=== PATIENT | male | born 1990 | race Two or more races ===

== ENCOUNTER 2017-03-28 06:37 | Emergency (ER) | payer OTHER ==
[~2017-03-28] VITALS: Ht 167.6 cm; Wt 54.4 kg
[2017-03-28] MEDS ORDERED: STRIBILD TABLE1 EACH PO (06:54)
[2017-03-28] MEDS ORDERED: LORazepam 1mg tab ORAL ONE (07:15)
[2017-03-28 08:16] VITALS: BP 120/86
[2017-03-28 08:19] VITALS: BP 120/86
[2017-03-28] MEDS ORDERED: ALPRAZOLAM0.25 MG ORAL (08:41)
--- NOTE | 2017-03-31 07:04 | Emergency Room Report ---
History of Present Illness General Chief Complaint: Substance Abuse Source: Patient Present Illness HPI 27-year-old male presents ED for evaluation. Patient states that he needs to be evaluated. Patient states he feels tired and is not sleeping. 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 Denies any other drug use. Denies any chest pain or shortness of breath. States he is homeless has been walking around all night. Patient states he feels very anxious and needs something to relax. Denies any suicidal or homicidal ideation. Denies hearing voices. No other aggravating or relieving factors. Denies any other associated symptoms Allergies: Coded Allergies: No Known Allergies (Unverified , 03/28/17) Patient History Past Medical History: none, psych hx Past Surgical History: none Pertinent Family History: none Social History: Reports: drug use, Denies: alcohol use, smoking Immunizations: UTD Reviewed Nursing Documentation: PMH: Agreed, PSxH: Agreed Nursing Documentation-PMH History Of Psychiatric Problem: Yes - Anxiety Review of Systems All Other Systems: negative except mentioned in HPI Physical Exam Vital Signs Date Time Temp Pulse Resp B/P Pulse Ox O2 Delivery O2 Flow Rate FiO2 03/28/17 06:50 98.2 93 18 136/63 100 Room Air Sp02 EP Interpretation: reviewed, normal General Appearance: no apparent distress, alert, GCS 15, non-toxic Head: normocephalic, atraumatic Eyes: bilateral eye PERRL, bilateral eye normal inspection ENT: hearing grossly normal, normal pharynx, no angioedema, normal voice Neck: full range of motion, supple/symm/no masses Respiratory: chest non-tender, lungs clear, normal breath sounds, speaking full sentences Cardiovascular #1: regular rate, rhythm, no edema Cardiovascular #2: 2+ carotid (R), 2+ carotid (L), 2+ radial (R), 2+ radial (L) , 2+ dorsalis pedis (R), 2+ dorsalis pedis (L) Gastrointestinal: normal bowel sounds, non tender, soft, non-distended, no guarding, no rebound Rectal: deferred Genitourinary: normal inspection, no CVA tenderness Musculoskeletal: back normal, gait/station normal, normal range of motion, non- tender Neurologic: alert, oriented x3, responsive, motor strength/tone normal, sensory intact, speech normal Psychiatric: judgement/insight normal, memory normal, no suicidal/homicidal ideation, anxious Reflexes: 3+ bicep (R), 3+ bicep (L), 3+ tricep (R), 3+ tricep (L), 3+ knee (R) , 3+ knee (L) Skin: normal color, no rash, warm/dry, well hydrated Lymphatic: no adenopathy Medical Decision Making Diagnostic Impression: Primary Impression: Anxiety Additional Impression: Substance abuse ER Course Hospital Course 27-year-old male presents ED feeling anxious after methamphetamine abuse. Feels tired. Clinical course Patient placed on stretcher. Given that patient is able to provide an adequate history, I see no need to check blood work or place an IV. Physical exam is unremarkable. Patient given Ativan for anxiety. On reassessment patient states he feels better My assessment shows no evidence of SI/HI requiring psychiatric evaluation. I offered patient option for correction referral but patient states he will go stay with his sister Diagnosis - anxiety, substance abuse stable and discharged to home. Followup with PMD. Return to ED if symptoms recur or worsen Last Vital Signs Date Time Temp Pulse Resp B/P Pulse Ox O2 Delivery O2 Flow Rate FiO2 03/28/17 08:19 98.2 99 18 120/86 100 Room Air Status: improved Disposition: HOME, SELF-CARE Condition: Stable Scripts Alprazolam* (XANAX*) 0.25 Mg Tablet 0.25 MG ORAL TID Y for For Anxiety, #20 TAB Prov: JOSHUA PAINTING M.D. 03/28/17 Patient Instructions: Stimulant Use Disorder-Methamphetamines JOSHUA PAINTING M.D. Mar 31, 2017 07:03
== END 2017-03-28 08:44 | disposition home or self-care (01) ==
LOC: EMR 07:14
DX: F41.9 Anxiety disorder, unspecified (principal); F15.10 Other stimulant abuse, uncomplicated; Z59.0 Homelessness
CPT/HCPCS: 99283